=== PATIENT | female | born 1955 | race Caucasian/White ===

== ENCOUNTER → 2022-07-09 | Outpatient (CLI) | payer MEDICAID, MEDICARE, OTHER ==
--- NOTE | 2022-07-09 15:21 | Diagnostic Imaging Report ---
PET/CT INDICATION: Breast cancer. EXAMINATION: After intravenous administration of 8.67 mCi of [id number], a series of overlapping emission and transmission PET images was obtained. In the coronal, transaxial and sagittal planes, the area imaged extended from the skull base through the upper thighs. COMPARISON: There are no prior PET/CT or cross-sectional imaging studies available for comparison. FINDINGS: There is no hypermetabolic activity to suggest malignancy. There is increased uptake in the right acromioclavicular joint. The maximum SUV in this area is 4.4. This is felt to be degenerative in nature. Physiologic uptake is seen in the kidneys, bowel and bladder. The CT images failed to show any sign of an acute abnormality. There is little if any breast tissue still evident. Correlation with the patient's surgical history would be recommended. IMPRESSION: There is no hypermetabolic activity to suggest the presence of malignancy. There is no acute abnormality identified either. Dictated by: Dictated on workstation # [id number]
== END ==
LOC: RAD 07:35
PROVIDERS: ATTEND Internal Medicine Hematology & Oncology
DX: C50.411 Malignant neoplasm of upper-outer quadrant of right female breast (principal)
CPT/HCPCS: 82947